=== PATIENT | male | born 1965 | race Caucasian/White ===

== ENCOUNTER 2021-01-24 20:17 | Emergency (ER) | payer OTHER, MEDICAID ==
[~2021-01-24] VITALS: Ht 182.9 cm; Wt 90.7 kg
[2021-01-24 20:17] VITALS: BP 132/89
--- NOTE | 2021-01-24 20:17 | NUR ---
JESUS MITCHELL VIA GURNEY TO BED 07.
--- NOTE | 2021-01-24 20:25 | NUR ---
STEPHEN FROM A [facility]AC[facility], PT. IS A 55 Y/O MALE THAT CAME INTO ED WITH C/O OF SEIZURES. PT. STATES HE HAD "4-5 TONIC CLONIC SEIZURES, LASTING LESS THAN 30 SECONDS." PT. STATES HE HAS NO PAIN AT THIS TIME. AAOX4; DENIES N/V/D/FEVER. SKIN IS PINK/WARM/DRY; HR EVEN AND REGULAR; PT DENIES ANY FEVER, CP, SOB, OR COUGH AT THIS TIME; VSS; PATIENT POSITIONED FOR COMFORT; HOB ELEVATED; BEDRAILS UP X2; BED DOWN. ER MD MADE AWARE OF PT STATUS. PMH: SEIZURES, HTN, PROSTATE CANCER (IN REMISSION) ALLERGIES: NKA
--- NOTE | 2021-01-24 21:01 | NUR ---
ERMD FLAMMIA AT BEDSIDE.
--- NOTE | 2021-01-24 21:10 | NUR ---
PT. LAYING IN SUPINE POSITION, VOICES NO COMPLAINTS AT THIS TIME. BREATHING UNLABORED ADN EVEN. WILL CONT. TO MONITOR
--- NOTE | 2021-01-24 21:25 | NUR ---
LAB AT BEDSIDE
--- NOTE | 2021-01-24 21:35 | NUR ---
URINE COLLECTED AND HANDED TO DORIAN FROM LAB.
[2021-01-24 21:39] LABS: APPEARANCE,URINE CLEAR (CLEAR); BILIRUBIN,URINE NEGATIVE (NEGATIVE); BLOOD, URINE TRACE-I (NEGATIVE); COLOR,URINE YELLOW (YELLOW); LEUKOCYTE ESTERASE ,URINE NEGATIVE (NEGATIVE); NITRITE, URINE NEGATIVE (NEGATIVE); UGLUCOSE NEGATIVE (NEGATIVE)
--- NOTE | 2021-01-24 21:41 | NUR ---
PT TAKEN TO CT VIA RSEDRICK.
[2021-01-24 21:43] LABS: BASOPHILS % (AUTO) 0.5 % (0.0-2.0); EOSINOPHILS # (AUTO) 0.1 K/uL (0-0.4); EOSINOPHILS % (AUTO) 1.8 % (0.0-4.0); HEMATOCRIT 31.5 % (36-52); HEMOGLOBIN 10.9 g/dL (12.0-18.0); LYMPHOCYTES # (AUTO) 1.2 K/uL (2.0-11.5); MEAN CORPUSCULAR HEMOGLOBIN 31 pg (27-31); MEAN CORPUSCULAR HGB CONC 35 g/dL (33-37); MEAN CORPUSCULAR VOLUME 88.2 fL (80-94); MONOCYTES # (AUTO) 0.5 K/uL (0.8-1.0); MONOCYTES % (AUTO) 6.5 % (1.7-9.3); NEUTROPHILS % (AUTO) 76.2 % (42.2-75.2); PLATELET COUNT (AUTO) 333 K/uL (140-450); RED BLOOD CELL COUNT(AUTO) 3.56 MIL/uL (4.20-6.10); RED CELL DISTRIBUTION WIDTH 14.7 % (11.6-13.7); WHITE BLOOD COUNT (AUTO) 7.9 K/uL (4.8-10.8)
[2021-01-24 21:55] LABS: ALBUMIN 3.3 g/dL (3.4-5.0); CARBON DIOXIDE 30.1 mmol/L (21-32); CREATININE 0.8 mg/dL (0.6-1.3); POTASSIUM 4.1 mmol/L (3.5-5.1); TOTAL BILIRUBIN 0.2 mg/dL (0.0-1.0)
--- NOTE | 2021-01-24 21:55 | NUR ---
PT. BACK FROM CT. VIA CYNTHIA
[2021-01-24 21:58] LABS: BARBITURATE, URINE NEGATIVE ng/ml (NEG <=200); BENZODIAZEPINE, URINE POSITIVE ng/mL (NEG <=200); CANNABINOID, URINE POSITIVE ng/mL (NEG <=50); COCAINE, URINE NEGATIVE ng/mL (NEG <=300); OPIATE, URINE NEGATIVE ng/mL (NEG <=2000); PHENCYCLIDINE SCREEN,URINE NEGATIVE ng/mL (NEG <=25)
[2021-01-24] MEDS: levETIRAcetam 500 MG TAB PO ONE (22:07)
[2021-01-24] MEDS ORDERED: KEP500 PO (22:09)
[2021-01-24 22:48] VITALS: BP 124/74
--- NOTE | 2021-01-24 22:48 | NUR ---
Patient discharged with v/s stable. Written and verbal after care instructions given and explained. Patient alert, oriented and verbalized understanding of instructions. Ambulatory with steady gait. All questions addressed prior to discharge. ID band removed. Patient advised to follow up with PMD. Rx of KEJESUS given. Patient educated on indication of medication including possible reaction and side effects. Opportunity to ask questions provided and answered.
[2021-01-24] MEDS: LORazepam 1 MG TAB PO ONE (23:07)
[2021-01-25] MEDS ORDERED: QUET100T PO (01:58)
[2021-01-25] MEDS ORDERED: LAM25 PO (01:58)
== END 2021-01-24 22:48 | disposition home or self-care (01) ==
LOC: MED 20:17
DX: R56.9 Unspecified convulsions (principal); I10 Essential (primary) hypertension; Z98.890 Other specified postprocedural states; Z85.46 Personal history of malignant neoplasm of prostate
CPT/HCPCS: 36415; 70450; 71045; 80053; 80305; 81003; 85025; 93005; 99285; Q0092

== ENCOUNTER 2021-01-24 23:47 | Inpatient (IN) | payer OTHER, MEDICAID ==
[~2021-01-24] VITALS: Ht 185.4 cm; Wt 88.5 kg
[~2021-01-24 23:47] MED LIST: KEP500 PO
[2021-01-24 23:53] VITALS: BP 153/57
--- NOTE | 2021-01-24 23:53 | NUR ---
PT. WAS DISCHARGED IN THE LOBBY AND HAD A SEIZURE (LASTING LESS THAN 20 SECS.) DURING WAITING FOR TAXI CAB. PT. ALSO WAS SITTING IN CHAIR WAVING HANDS AND STATING "I AM HAVING A SEIZURE." AAOX4; VSS. PATIENT POSITIONED FOR COMFORT; HOB ELEVATED; BEDRAILS UP X2; BED DOWN. ER MD MADE AWARE OF PT STATUS. PMH: PROSTATE CANCER (IN REMISSION), SEIZURES, HTN ALLERGIES: NKA
--- NOTE | 2021-01-24 23:53 | NUR ---
W/C ASSISTED TO BED 8
--- NOTE | 2021-01-25 00:13 | NUR ---
PT. ON RIGHT SIDE IN A POSITION, HR EVEN AND REGULAR. NO DISTRESS NOTED AT THIS TIME.
--- NOTE | 2021-01-25 01:00 | NUR ---
PT. RESTING WITH EYES CLOSED, VOICES NO COMPLAINTS AT THIS TIME. WILL CONTINUE TO MONITOR
[2021-01-25] MEDS ORDERED: LAM25 PO (01:58)
[2021-01-25] MEDS ORDERED: QUET100T PO (01:58)
--- NOTE | 2021-01-25 04:08 | NUR ---
PT IN SUPINE POSITION WITH EYES CLOSED. VOICES NO COMPLAINTS AT THIS TIME; VSS
--- NOTE | 2021-01-25 05:05 | NUR ---
LAVELL COLLECTED AND WALKED TO LAB BY KARI TRAN.
--- NOTE | 2021-01-25 06:35 | NUR ---
RECIEVED CALL FROM MARY ARNDT (SCREEN MAKING SUPERVISOR OF [employer]) FOR UPDATE REGARDING PT. ASKED TO BE UPDATED WHEN PT. MOVES TO FLOOR UNIT. PHONE NUMBER:
--- NOTE | 2021-01-25 06:41 | NUR ---
PT. LAYINING COMFORTABLY IN SUPINE POSITION, AUDIBLE SNORING SOUNDS CAN BE HEARD. VOICES NO COMPLAINTS AT THIS TIME.
[2021-01-25] MEDS ORDERED: MAGNESIUM OXIDE 400 MG TAB PO PRN (07:10)
[2021-01-25] MEDS ORDERED: ONDANSETRON 4 MG/2 ML VIAL IM/IVP PRN (07:10)
[2021-01-25] MEDS ORDERED: SODIUM PHOS / POTASSIUM PHOS 1 PKT PDR PO PRN (07:10)
[2021-01-25] MEDS ORDERED: POTASSIUM CHLORIDE 10 MEQ TABER PO PRN (07:10)
[2021-01-25] MEDS ORDERED: LORazepam 2 MG/ML VIAL IM/IVP PRN (07:10)
[2021-01-25] MEDS ORDERED: HYDROcodone/APAP 5/325 MG 1 TAB TAB PO PRN (07:10)
[2021-01-25] MEDS ORDERED: DOCUSATE SODIUM 100 MG GELCAP PO PRN (07:10)
[2021-01-25] MEDS ORDERED: ACETAMINOPHEN 325 MG TAB PO PRN (07:10)
--- NOTE | 2021-01-25 07:14 | NUR ---
REPORT GIVEN TO ESTEBAN CENTENO. TRANSFER OF CARE AT THIS TIME.
--- NOTE | 2021-01-25 07:15 | NUR ---
REPORT AND TRANSFER OF CARE RECEIVED FROM ESTEBAN CRAWLEY.
--- NOTE | 2021-01-25 07:16 | NUR ---
PATIENT GIVEN URINAL, LINEN CHANGED, REPOSITIONED IN BED FOR COMFORT. A&OX4, RR EVEN AND UNLABORED.
--- NOTE | 2021-01-25 07:18 | NUR ---
400CC OF URINE EMPTIED FROM URINAL. CLEAR AND YELLOW.
--- NOTE | 2021-01-25 07:47 | NUR ---
20G IV ESTABLISHED TO RAC, BLOOD DRAWN AND GIVEN TO WILDLIFE MANAGEMENT PROFESSOR.
[2021-01-25] MEDS: NACL 0.9% 1,000 ML IV SCH ×2 (08:05→23:50)
[2021-01-25 08:07] LABS: MAGNESIUM 1.5 mg/dL (1.8-2.4); PHOSPHORUS 2.8 mg/dL (2.5-4.9)
--- NOTE | 2021-01-25 08:16 | NUR ---
REPORT GIVEN TO TELE NURSE GAUTAM RN FOR ADMISSION.
--- NOTE | 2021-01-25 08:22 | NUR ---
Patient will be admitted to care of [facility]. Admited to SHADE. Will go to room 104B. Belongings list completed. Report to ESTEBAN FLOREZ.
--- NOTE | 2021-01-25 08:30 | NUR ---
PATIENT ARRIVE TO UNIT. PATIENT AWAKE AND ALERT. NO ACUTE DISTRESS NOTED. BREATHING EVEN AND UNLABORED. LUNG SOUND ARE CLEAR. BOWEL SOUND HEARD IN ALL QUADRANTS. SKIN IS WARM, INTACT AND CLEAN TO TOUCH. PATIENT ABLE TO AMBULATE TO TOILET. PATIENT EDUCATED TO ROOM ENVIRONMENT. PATIENT HAS R AC 22g. NO SEIZURE NOTED AT THIS TIME. PATIENT DENIES ANY PAIN. PATIENT STATE HAVING HX OF PROSTATE CANCER, SEIZURE, DEPRESSION, ANXIETY, HTN, CVA RT SIDED WEAKNESS 2019, ME AND TESTICULAR CANCER. ALL SAFETY MEASURES IN PLACE. CALL LIGHT WITHIN REACH. WILL CONTINUE TO MONITOR.
[2021-01-25] MEDS ORDERED: lamoTRIgine 25 MG TAB PO SCH (09:00)
[2021-01-25] MEDS: PANTOPRAZOLE 40 MG INJ VIAL IVP SCH (09:53)
[2021-01-25] MEDS: levETIRAcetam 500 MG TAB PO SCH ×3 (09:53→21:39)
--- NOTE | 2021-01-25 09:53 | NUR ---
PATIENT AWAKE AND ALERT. BREATHING EVEN AND UNLABORED. PATIENT ON ROOM AIR NO DISTRESS NOTED. SCHEDULED MEDICATION GIVEN. PATIENT DENIES PAIN AT THIS TIME. ALL SAFETY MEASURES IN PLACE CALL LIGHT WITHIN REACH. WILL CONTINUE TO MONITOR.
--- NOTE | 2021-01-25 10:55 | NUR ---
DC PLANNIN YRS OLD MALE PATIENT WAS ADMITTED FROM HOME WITH A DX OF SEIZURE . PATIENT HAS A HX OF PROSTATE CA, SEIZURE, DEPRESSION HTN, CVA RT SIDED WEAKNESS, UT AND TESTICULAR CANCER. ADMINISTERED IVF, AND CONTINUED HOME MEDS. CONSULTED WITH NEUROLOGIST DR LEUNG. DC PLAN TO GO [facility] WHEN STABLE CM TO FOLLOW
--- NOTE | 2021-01-25 11:29 | NUR ---
PATIENT AWAKE AND ALERT.PATIENT NOTED TO HAVE EPISODES OF FORGETFULNESS. EDUCATION REINFORCED. PATIENT VERBALIZE UNDERSTANDING. BREATHING EVEN AND UNLABORED. PATIENT ON ROOM AIR NO DISTRESS NOTED. PATIENT DENIES PAIN AT THIS TIME. ALL SAFETY MEASURES IN PLACE CALL LIGHT WITHIN REACH. WILL CONTINUE TO MONITOR.
[2021-01-25] MEDS: MORPHINE SULFATE 2 MG/ML SYR IVP PRN ×2 (13:06→21:49)
--- NOTE | 2021-01-25 13:13 | NUR ---
PATIENT AWAKE AND ALERT. BREATHING EVEN AND UNLABORED. PATIENT COMPLAIN OF RIGHT SIDE PAIN. MD AWARE. PAIN MEDICATION GIVEN. ALL SAFETY AND SEIZURE PRECAUTIONS IN PLACE. CALL LIGHT WITHIN REACH. WILL CONTINUE TO MONITOR.
[2021-01-25 14:13] LABS: BARBITURATE, URINE NEGATIVE ng/ml (NEG <=200); BENZODIAZEPINE, URINE POSITIVE ng/mL (NEG <=200); COCAINE, URINE NEGATIVE ng/mL (NEG <=300)
[2021-01-25 14:14] LABS: CANNABINOID, URINE POSITIVE ng/mL (NEG <=50); OPIATE, URINE NEGATIVE ng/mL (NEG <=2000); PHENCYCLIDINE SCREEN,URINE NEGATIVE ng/mL (NEG <=25)
--- NOTE | 2021-01-25 14:33 | NUR ---
PATIENT HAS BEEN SCREENED AND CATEGORIZED LOW NUTRITION RISK. PATIENT WILL BE SEEN WITHIN 7 DAYS OF ADMISSION. 01/31/[address]
--- NOTE | 2021-01-25 15:12 | NUR ---
PATIENT SLEEPING. BREATHING EVEN AND UNLABORED. PATIENT ON ROOM AIR NO DISTRESS NOTED. ALL SAFETY MEASURES IN PLACE. CALL LIGHT WITHIN REACH. WILL CONTINUE TO MONITOR.
[2021-01-25] MEDS ORDERED: AZITHROMYCIN 250 MG TAB PO ONE (15:15)
[2021-01-25 16:00] VITALS: BP 134/89
--- NOTE | 2021-01-25 16:44 | NUR ---
PATIENT SLEEPING. BREATHING EVEN AND UNLABORED. PATIENT ON ROOM AIR. ALL SAFETY MEASURES AND SEIZURE PRECAUTIONS IN PLACE. CALL LIGHT WITHIN REACH. WILL CONTINUE TO MONITOR.
[2021-01-25] MEDS: metroNIDAZOLE 500 MG TAB PO SCH (17:52)
--- NOTE | 2021-01-25 18:05 | NUR ---
PATIENT AWAKE AND ALERT.PATIENT NOTED TO HAVE EPISODES OF FORGETFULNESS. EDUCATION REINFORCED. PATIENT VERBALIZE UNDERSTANDING. BREATHING EVEN AND UNLABORED. PATIENT ON ROOM AIR NO DISTRESS NOTED. ALL SAFETY MEASURES IN PLACE CALL LIGHT WITHIN REACH. WILL CONTINUE TO MONITOR.
--- NOTE | 2021-01-25 19:05 | NUR ---
ENDORSED TO TEST DATA DEVELOPER NURSE FOR CONTINUITY OF CARE. PATIENT STABLE. ALL SAFETY MEASURES IN PLACE.
--- NOTE | 2021-01-25 19:30 | NUR ---
RECEIVED REPORT FORM RN DAYSHIFT NURSE AT BEDSIDE FOR CONTINUITY OF CARE, PT IN STABLE CONDITION.
[2021-01-25 20:00] VITALS: BP 110/88
--- NOTE | 2021-01-25 20:00 | NUR ---
PT LYING IN BED AOX3-4 HE IS ALERT AND AWAKE WITH IV SITE RAC 22G INTACT AND RUNNING NORMAL SALINE AT 60MLS/HR. NO PAIN OR DISTRESS NOTED. ALL SEIZURE AND UNIVERSAL FALLS PRECAUTIONS IN PLACE.
[2021-01-25] MEDS: lamoTRIgine 25 MG TAB PO SCH (21:40)
[2021-01-25] MEDS: QUEtiapine FUMARATE 100 MG TAB PO SCH (21:41)
--- NOTE | 2021-01-25 22:00 | NUR ---
PT GIVEN ALL DUE MEDS, EDUCATION REGARDING DX AND MEDICATION PROVIDED AT BEDSIDE, PT VERBALIZED UNDERSTANDING. ALL SEIZURE AND UNIVERSAL FALLS PRECAUTIONS IN PLACE.
[2021-01-26] VITALS: BP 99/48
--- NOTE | 2021-01-26 | NUR ---
ROUNDS DONE PT IN BED RESTING BUT AWAKEN TO NAME AND LIGHT SHAKING. V/S FOLLOWS: T 98.6 P 55 R 20 B/P 99/48 02 92% ON ROOM AIR. ALL ORDERED PRECAUTIONS IN PLACE. NO SEIZURE ACTIVITY NOTED THIS SHIFT.
[2021-01-26 04:00] VITALS: BP 127/73
[2021-01-26] MEDS: MORPHINE SULFATE 2 MG/ML SYR IVP PRN ×2 (06:09→21:17)
--- NOTE | 2021-01-26 06:30 | NUR ---
PT C/0 THAT HE HAD 2 SMALL UNWITNESSED SEIZURES. PT STAYED IN THE BED AND DID NOT HAVE AN EPISODE OF INCONTINENCE. PT C/O OF NAUSEA AND HEADACHE AHD WAS GIVEN PRN MORPHINE AND ZOFRAN.
--- NOTE | 2021-01-26 07:15 | NUR ---
RECEIVED REPORT FROM NIGHTSHIFT NURSE. PT RESTING IN BED. ABLE TO MAKE NEEDS KNOWN. RESPIRATIONS EVEN AND UNLABORED WITH NO SOB OR RESPIRATORY DISTRESS. SKIN WARM AND DRY TO TOUCH. SAFETY MEASURES IN PLACE. WILL CONTINUE TO MONITOR
[2021-01-26 07:18] LABS: ANION GAP 11.4 (8-16); CARBON DIOXIDE 28.8 mmol/L (21-32); CREATININE 0.9 mg/dL (0.6-1.3); POTASSIUM 4.2 mmol/L (3.5-5.1)
[2021-01-26 08:00] VITALS: BP 122/70
[2021-01-26 08:15] LABS: BASOPHILS % (AUTO) 0.5 % (0.0-2.0); EOSINOPHILS # (AUTO) 0.2 K/uL (0-0.4); EOSINOPHILS % (AUTO) 4.3 % (0.0-4.0); HEMATOCRIT 34.7 % (36-52); HEMOGLOBIN 11.7 g/dL (12.0-18.0); LYMPHOCYTES # (AUTO) 1.7 K/uL (2.0-11.5); LYMPHOCYTES % (AUTO) 31.4 % (20.5-51.1); MEAN CORPUSCULAR HEMOGLOBIN 31 pg (27-31); MEAN CORPUSCULAR HGB CONC 34 g/dL (33-37); MEAN CORPUSCULAR VOLUME 91.1 fL (80-94); MONOCYTES # (AUTO) 0.4 K/uL (0.8-1.0); MONOCYTES % (AUTO) 7.7 % (1.7-9.3); NEUTROPHILS % (AUTO) 56.1 % (42.2-75.2); PLATELET COUNT (AUTO) 389 K/uL (140-450); RED BLOOD CELL COUNT(AUTO) 3.81 MIL/uL (4.20-6.10); RED CELL DISTRIBUTION WIDTH 14.4 % (11.6-13.7); WHITE BLOOD COUNT (AUTO) 5.4 K/uL (4.8-10.8)
[2021-01-26] MEDS: PANTOPRAZOLE 40 MG INJ VIAL IVP SCH (08:59)
[2021-01-26] MEDS: lamoTRIgine 25 MG TAB PO SCH ×2 (09:00→21:18)
[2021-01-26] MEDS ORDERED: AZITHROMYCIN 250 MG TAB PO SCH (09:00)
[2021-01-26] MEDS: metroNIDAZOLE 500 MG TAB PO SCH ×3 (09:00→16:53)
[2021-01-26] MEDS: TAMSULOSIN 0.4 MG CAP PO SCH (09:01)
[2021-01-26] MEDS: levETIRAcetam 500 MG TAB PO SCH ×2 (09:01→21:19)
--- NOTE | 2021-01-26 09:15 | NUR ---
ADMINISTERED SCHED MED PRESCRIBED PER MD ORDER. PT TOLERATED WELL. MEDICATION EDUCATION PERFORMED. PT VERBALIZED UNDERSTANDING. SAFETY MEASURES IN PLACE. WILL CONTINUE TO MONITOR
--- NOTE | 2021-01-26 10:15 | NUR ---
HERNANDEZ FROM [employer] CALLED AND WANTED AN UPDATE. UPDATE GIVEN ON PATIENT CONDITION. CAN BE REACHED AT [phone]. ROBERT WILSON IS ALSO A CAREGIVER AND CAN BE REACHED AT [phone]. SAFETY MEASURES IN PLACE. WILL CONTINUE TO MONITOR
[2021-01-26 12:00] VITALS: BP 145/60
--- NOTE | 2021-01-26 12:15 | NUR ---
PATIENT EATING LUNCH. NO SIGNS OF DISTRESS AT THIS TIME. SAFETY MEASURES IN PLACE. WILL CONTINUE TO MONITOR
[2021-01-26] MEDS ORDERED: LIDOCAINE 4% 40 MG/ML BTL TP ONE (12:25)
[2021-01-26] MEDS ORDERED: LIDOCAINE 5% 1 EA PATCH TP SCH (12:30)
--- NOTE | 2021-01-26 13:20 | NUR ---
ADMINISTERED SCHED MED PRESCRIBED PER MD ORDER. PT TOLERATED WELL. MEDICATION EDUCATION PERFORMED. PT VERBALIZED UNDERSTANDING. SAFETY MEASURES IN PLACE. WILL CONTINUE TO MONITOR
--- NOTE | 2021-01-26 14:39 | NUR ---
PATIENT COMPLAINED OF ANXIETY. PRN ATIVAN ADMINISTERED PRESCRIBED PER MD ORDER. PT TOLERATED WELL. SAFETY MEASURES IN PLACE. WILL CONTINUE TO MONITOR
[2021-01-26 16:00] VITALS: BP 145/80
--- NOTE | 2021-01-26 16:04 | NUR ---
PT RESTING IN BED. ABLE TO MAKE NEEDS KNOWN. RESPIRATIONS EVEN AND UNLABORED WITH NO SOB OR RESPIRATORY DISTRESS. SAFETY MEASURES IN PLACE. WILL CONTINUE TO MONITOR
[2021-01-26] MEDS: NACL 0.9% 1,000 ML IV SCH (16:51)
--- NOTE | 2021-01-26 17:00 | NUR ---
ADMINISTERED SCHED MED PRESCRIBED PER MD ORDER. PT TOLERATED WELL. MEDICATION EDUCATION PERFORMED. PT VERBALIZED UNDERSTANDING. SAFETY MEASURES IN PLACE. WILL CONTINUE TO MONITOR
--- NOTE | 2021-01-26 19:35 | NUR ---
ENDORSED TO NIGHTSHIFT NURSE FOR CONTINUITY OF CARE
[2021-01-26 20:00] VITALS: BP 120/68
[2021-01-26] MEDS: QUEtiapine FUMARATE 100 MG TAB PO SCH (21:19)
[2021-01-27] VITALS: BP 118/65
--- NOTE | 2021-01-27 01:45 | NUR ---
PATIENT AWAKE RESTING IN BED WITH C/O OF PAIN IN BACK MEDICATED WITH MORPHINE 1 MG IVP. LUNGS DIMINISH TO LISTEN ABDOMEN SOFT BOWEL SOUND PRESENT.PATIENT HAS NS INFUSING IV SITE SWOLLEN 24 GA AT SITE, RIGHT ARM SWOLLEN. TRYED TO START IV NOT ABLE VERY HARD STICK. CALLED [facility] [employer] HE PUT 18 GA IN RIGHT SIDE OF NECK PATIENT. PATIENT GIVEN HIS MORPHINE GIVEN NOW NOT PRIOR TO ABOVE.PATIENT HAD NO IV SITE AT RECEIVED MORPHINE AFTER [facility] [employer] PUT IN IV.
[2021-01-27 04:00] VITALS: BP 120/69
[2021-01-27 07:24] LABS: BASOPHILS % (AUTO) 0.6 % (0.0-2.0); EOSINOPHILS # (AUTO) 0.2 K/uL (0-0.4); EOSINOPHILS % (AUTO) 3.7 % (0.0-4.0); HEMATOCRIT 33.5 % (36-52); HEMOGLOBIN 11.5 g/dL (12.0-18.0); LYMPHOCYTES # (AUTO) 1.4 K/uL (2.0-11.5); LYMPHOCYTES % (AUTO) 21.2 % (20.5-51.1); MEAN CORPUSCULAR HEMOGLOBIN 31 pg (27-31); MEAN CORPUSCULAR HGB CONC 34 g/dL (33-37); MEAN CORPUSCULAR VOLUME 88.8 fL (80-94); MONOCYTES # (AUTO) 0.5 K/uL (0.8-1.0); MONOCYTES % (AUTO) 7.9 % (1.7-9.3); NEUTROPHILS # (AUTO) 4.4 K/uL (1.8-7.7); NEUTROPHILS % (AUTO) 66.6 % (42.2-75.2); PLATELET COUNT (AUTO) 422 K/uL (140-450); RED BLOOD CELL COUNT(AUTO) 3.77 MIL/uL (4.20-6.10); RED CELL DISTRIBUTION WIDTH 14.4 % (11.6-13.7); WHITE BLOOD COUNT (AUTO) 6.5 K/uL (4.8-10.8)
--- NOTE | 2021-01-27 07:30 | NUR ---
PT RECEIVED FROM CARD DEALER RN . PT RESTING IN BED. ALL SAFETY MEASURES ARE IN PLACE.
[2021-01-27 08:00] VITALS: BP 126/74
[2021-01-27 08:46] LABS: CARBON DIOXIDE 24.6 mmol/L (21-32); CREATININE 0.8 mg/dL (0.6-1.3)
--- NOTE | 2021-01-27 08:46 | NUR ---
PATIENT HAS BEEN SCREENED AND CATEGORIZED LOW NUTRITION RISK. PATIENT WILL BE SEEN WITHIN 7 DAYS OF ADMISSION. 02/01/[address]
[2021-01-27] MEDS: levETIRAcetam 500 MG TAB PO SCH (08:52)
[2021-01-27] MEDS: metroNIDAZOLE 500 MG TAB PO SCH ×3 (08:52→18:22)
[2021-01-27] MEDS: PANTOPRAZOLE 40 MG INJ VIAL IVP SCH (08:52)
[2021-01-27] MEDS: TAMSULOSIN 0.4 MG CAP PO SCH (08:52)
[2021-01-27] MEDS: lamoTRIgine 25 MG TAB PO SCH (08:53)
[2021-01-27 08:54] LABS: ANION GAP 16.3 (8-16); POTASSIUM 3.9 mmol/L (3.5-5.1)
[2021-01-27] MEDS ORDERED: MENTHOL/METHYL 10%-15% 114 GM TUBE TP SCH (09:00)
--- NOTE | 2021-01-27 09:00 | NUR ---
PT GIVEN MEDICATIONS PER MD ORDER. PT EDUCATED VERBALIZED UNDERSTANDING . SPIRITUAL CARE PERFORMED. PT CRIED BUT IS BETTER. ALL SAFETY MEASURES IN PLACE
[2021-01-27] MEDS: NACL 0.9% 1,000 ML IV SCH (09:10)
--- NOTE | 2021-01-27 09:20 | NUR ---
PT CONDITION IS STABLE TAKING A NAP
--- NOTE | 2021-01-27 10:00 | NUR ---
RECEIVED REPORT FOR PT FROM ED FROM NURSE SELF IN [facility]. PT ON UNIT.
--- NOTE | 2021-01-27 10:05 | NUR ---
PT IS AA&OX4. PT IS ON RA WITH NORMAL UNLABORED BREATHING. PT HAS LEFT FOOT AND LOWER LEFT LEG WOUNDS. PT HAS R LEG AMPUTATION AND LEFT TOES AMPUTATION FROM PMH. PT IS CURRENTLY STABLE AND DENIES PAIN AT THIS TIME.
[2021-01-27] MEDS ORDERED: LAM25 PO (10:06)
[2021-01-27] MEDS ORDERED: TAMS0.4C96 PO (10:06)
[2021-01-27] MEDS ORDERED: QUET100T44 PO (10:06)
[2021-01-27] MEDS ORDERED: MENT90CR TP (10:06)
[2021-01-27] MEDS ORDERED: KEP500 PO (10:06)
[2021-01-27] MEDS ORDERED: MELA5SGL PO (10:51)
--- NOTE | 2021-01-27 11:30 | NUR ---
PT BG WAS 195. INSULIN COVERAGE NEEDED. ADMINISTERED 2 UNITS PER SLIDING SCALE MD ORDERED.
--- NOTE | 2021-01-27 11:50 | NUR ---
PT RESTING IN BED. ZEHRAAY APPLIED PER MD ORDERS PT EDUCATED TOLERTED WELL. NO S/SX OF DISTRESS . ALL SAFETY MEASURES ARE IN PLACE,
[2021-01-27 12:00] VITALS: BP 117/68
--- NOTE | 2021-01-27 13:15 | NUR ---
PT CONDITION IS STABLE. CURRENTLY AWAKE AND WATCHING TV PT DENIES PAIN AT THIS TIME.
[2021-01-27] MEDS: MORPHINE SULFATE 2 MG/ML SYR IVP PRN (13:32)
--- NOTE | 2021-01-27 15:23 | NUR ---
DC PLANNING PATIENT IS A 55 YEAR OLD MALE ADMITTED INTO THE ER [facility] DUE TO SEVERAL SEIZURE EPISODES AT HIS NEW BOARD AND CARE IN [place]. SW MET WITH PATIENT AT BEDSIDE TO DISCUSS AND COLLECT HIS COLLATERAL INFORMATION. PATIENT WAS VERY COLLABORATIVE AND PROVIDED MUST OF HIS INFORMATION SEEM A BIT CONFUSE ABOUT SOME OF THE BOARD AND CARE INFORMATION SINCE HE IS A COUPLE DAYS NEW IN NEW PLACEMENT. PATIENT REPORTED NOT HAVING MUCH INFORMATION ABOUT THE PLACE HOWEVER; STATED HERNANDEZ PADILLA THE PROGRAMMABLE LOGIC CONTROLLER ASSEMBLER WHO IS VERY NICE AND HAS CALLED HIM IN THE HOSPITAL TO FOLLOW UP ON HIS CARE. PER PATIENT HE HAS NO ADVANCE DIRECTIVES AND DECLINED INFORMATION PROVIDED BY SW. STATED " NO THANK YOU I HAVE VERY LITTLE COMMUNICATION WITH MY FAMILY DUE TO CONFLICT WITH THEM IN THE PAST. PATIENT STATED NOT HAVING A PCP, SW OFFERED A LIST OF PROVIDERS IN THE AREA AND OTHER RESOURCES AVAILABLE. PATIENT AGREED TO THE RESOURCES. PATIENT REPORTED NOT HAVING ANY ISUES GETTING AND TAKING HIS PRESCRIBED MEDICATIONS HE WILL BE GETTING THEM FROM THE [facility] IN [place] IN [facility] PATIENT ALSO REPORTED THAT HE HAS NO DME AND WANTS TO GO BACK TO HIS NEW BOARD AND CARE. SW CONTACTED MR. HERNANDEZ PADILLA FROM [facility] IN [place] TO CONFIRM ADDRESS AND PHONE INFORMATION ABOUT LOCATION AND SOME INFORMATION PROVIDED BY PATIENT TO SW. PER MR. HERNANDEZ PADILLA PATIENT IS VERY NEW TO HIS FACILITY BUT IS HAPPY HE IS WELL AND READY TO COME BACK TO THEIR CARE. HE ALSO REPORTED THAT HE WILL BE PICKING UP PATIENT AT DISCHARGE AT ABOUT 17:30 TODAY. SW THANK HIM FOR INFORMATION AND ENDED THE CALL. SW WILL FOLLOW UP NEEDED.
--- NOTE | 2021-01-27 15:30 | NUR ---
PT CONDITION IS STABLE. PT VOICES READINESS TO LEAVE HOSPITAL. CONDITION IS STABLE. PT DENIES PAIN, SKIN INTACT.
[2021-01-27 16:00] VITALS: BP 129/74
--- NOTE | 2021-01-27 16:52 | NUR ---
ADMINISTERED MAGNESIUM OXIDE PO PRN FOR LOW MAGNESIUM LEVEL PER MD ORDER. WILL CONTINUE TO MONITOR LAB.
--- NOTE | 2021-01-27 17:35 | NUR ---
PT CONDITION IS STABLE. WATCHING TV AND DENIES PAIN.
--- NOTE | 2021-01-27 17:53 | NUR ---
PT REASSESSED. PT DENIES PAIN COOLING MEASURES STILL IN PLACE. PT REEDUCATED. CALL LIGHT WITHIN REACH ALL SAFETY MEASURES ARE IN PLACE
--- NOTE | 2021-01-27 18:18 | NUR ---
MANAGER LONG TERM CARE HERNANDEZ CALLED REGARDING DATA ENTRY PROCESSOR TIME. [phone]
--- NOTE | 2021-01-27 19:09 | NUR ---
PT RESTING IN BED COMFORTABLY WILL ENDORSE TO PLASTER FORM MAKER NURSE FOR CONTINUITY OF CARE.
--- NOTE | 2021-01-27 19:15 | NUR ---
PT ENDORSED TO SUPPLY TECH RN, FOR CONTINUITY OF CARE .
--- NOTE | 2021-01-27 19:51 | NUR ---
RECEIVED ENDORSEMENT AT BEDSIDE, PT IN STABLE CONDITION, DRESSED AND READY TO LEAVE, D/C PAPERS AND BELONGINGS IN HAND. PT ESCORTED OUT IN A W/C AND LEFT WITH REFUGE MANAGER.
== END 2021-01-27 20:30 | disposition home or self-care (01) | DRG 100 ==
LOC: MED 23:47 → MTU 01-25 01:22
PROVIDERS: ADMIT Hospitalist; ATTEND Hospitalist
DX: G40.409 Other generalized epilepsy and epileptic syndromes, not intractable, without status epilepticus (principal); J69.0 Pneumonitis due to inhalation of food and vomit; E44.1 Mild protein-calorie malnutrition; I69.351 Hemiplegia and hemiparesis following cerebral infarction affecting right dominant side; E83.42 Hypomagnesemia; D64.9 Anemia, unspecified; R31.9 Hematuria, unspecified; F12.90 Cannabis use, unspecified, uncomplicated; R07.81 Pleurodynia; W05.0XXA Fall from non-moving wheelchair, initial encounter; E83.52 Hypercalcemia; I10 Essential (primary) hypertension; F32.9 Major depressive disorder, single episode, unspecified; I25.2 Old myocardial infarction; Z85.47 Personal history of malignant neoplasm of testis; Z90.79 Acquired absence of other genital organ(s); Z81.8 Family history of other mental and behavioral disorders; Y93.89 Activity, other specified; Y92.89 Other specified places as the place of occurrence of the external cause; Z79.899 Other long term (current) drug therapy; Z85.46 Personal history of malignant neoplasm of prostate; Y99.8 Other external cause status; Z68.25 Body mass index [BMI] 25.0-25.9, adult
CPT/HCPCS: 36415; 70450; 71045; 71100; 80048; 80053; 80173; 80299; 80305; 81003; 83735; 84100; 85025; 87081; 93005; 99291; C9113; G0482; J0696; J2060; J2270; J2405; J7060; Q0092

== ENCOUNTER 2021-02-10 18:52 | Emergency (ER) | payer OTHER, MEDICAID ==
[~2021-02-10] VITALS: Ht 182.9 cm; Wt 95.3 kg
[~2021-02-10 18:52] MED LIST changes: +LAM25 PO; +MELA5SGL PO; +MENT90CR TP; +QUET100T44 PO; +TAMS0.4C96 PO
[2021-02-10 19:00] VITALS: BP 111/77
--- NOTE | 2021-02-10 19:00 | NUR ---
BIBA TO ER BED 7
[2021-02-10] MEDS ORDERED: levETIRAcetam 1,000 MG in NACL 0.9% 100 ML IV ONE (19:10)
--- NOTE | 2021-02-10 19:20 | NUR ---
PT TAKEN TO CT VIA CYNTHIA
[2021-02-10] MEDS ORDERED: levETIRAcetam 100 MG/ML VIAL IV ONE (19:32)
--- NOTE | 2021-02-10 19:54 | NUR ---
LABS DRAWN BY PHLEB
--- NOTE | 2021-02-10 19:55 | NUR ---
55 Y/O MALE BIBA FROM THE STREET S/P BYSTANDERS WITNESSED HIM FALL WITH SEIZURE LIKE ACTIVITY AFTERWARDS. PT NOW POSTICTAL. PT HAD BOTTLE OF ALCOHOL NEXT TO HIM. PT WAS D/C FROM [facility] HRS AGO FOR SAME COMPLAINT. PMH:DM, HTN, SZ NKDA
[2021-02-10 19:58] LABS: BASOPHILS % (AUTO) 0.4 % (0.0-2.0); EOSINOPHILS # (AUTO) 0.2 K/uL (0-0.4); EOSINOPHILS % (AUTO) 2.7 % (0.0-4.0); HEMATOCRIT 37.5 % (36-52); HEMOGLOBIN 12.9 g/dL (12.0-18.0); LYMPHOCYTES # (AUTO) 1.8 K/uL (2.0-11.5); LYMPHOCYTES % (AUTO) 30.8 % (20.5-51.1); MEAN CORPUSCULAR HEMOGLOBIN 31 pg (27-31); MEAN CORPUSCULAR HGB CONC 35 g/dL (33-37); MEAN CORPUSCULAR VOLUME 89.9 fL (80-94); MONOCYTES # (AUTO) 0.3 K/uL (0.8-1.0); MONOCYTES % (AUTO) 5.8 % (1.7-9.3); NEUTROPHILS # (AUTO) 3.5 K/uL (1.8-7.7); NEUTROPHILS % (AUTO) 60.3 % (42.2-75.2); PLATELET COUNT (AUTO) 247 K/uL (140-450); RED BLOOD CELL COUNT(AUTO) 4.17 MIL/uL (4.20-6.10); RED CELL DISTRIBUTION WIDTH 14.8 % (11.6-13.7); WHITE BLOOD COUNT (AUTO) 5.8 K/uL (4.8-10.8)
[2021-02-10 20:18] LABS: ALBUMIN 3.7 g/dL (3.4-5.0); ANION GAP 14.4 (8-16); CARBON DIOXIDE 25.7 mmol/L (21-32); CREATININE 0.8 mg/dL (0.6-1.3); POTASSIUM 3.1 mmol/L (3.5-5.1); TOTAL BILIRUBIN 0.2 mg/dL (0.0-1.0)
--- NOTE | 2021-02-10 20:55 | NUR ---
PT ELOPED AT 205
== END 2021-02-10 20:50 | disposition left against medical advice (07) ==
LOC: MED 18:52
DX: S00.83XA Contusion of other part of head, initial encounter (principal); Z20.822 Contact with and (suspected) exposure to COVID-19; F15.129 Other stimulant abuse with intoxication, unspecified; R56.9 Unspecified convulsions; I10 Essential (primary) hypertension; Z79.899 Other long term (current) drug therapy; Z85.46 Personal history of malignant neoplasm of prostate; X58.XXXA Exposure to other specified factors, initial encounter; Y93.89 Activity, other specified; Y92.89 Other specified places as the place of occurrence of the external cause; Y99.8 Other external cause status
CPT/HCPCS: 36415; 70450; 80053; 85025; 96365; 99284; J1953

== ENCOUNTER 2021-02-10 22:59 | Emergency (ER) | payer OTHER, MEDICAID ==
[~2021-02-10] VITALS: Ht 182.9 cm; Wt 90.7 kg
[2021-02-11 00:59] VITALS: BP 142/81
[2021-02-11 01:02] VITALS: BP 142/81
--- NOTE | 2021-02-11 01:03 | NUR ---
PATIENT BIB [employer]. PATIENT EXAMINED BY DR. CARVALHO. PATIENT MEDICALLY CLEARED AND RELEASED IN CUSTODY IN STABLE CONDITION. ORIGINAL PRE-BOOK FORM GIVEN TO OFFICER.
== END 2021-02-11 01:02 ==
LOC: MED 22:59
DX: F91.1 Conduct disorder, childhood-onset type (principal); Z20.822 Contact with and (suspected) exposure to COVID-19; G40.909 Epilepsy, unspecified, not intractable, without status epilepticus; Z02.89 Encounter for other administrative examinations; I10 Essential (primary) hypertension; F17.210 Nicotine dependence, cigarettes, uncomplicated; Z85.46 Personal history of malignant neoplasm of prostate; Z79.899 Other long term (current) drug therapy
CPT/HCPCS: 99283